=== PATIENT | male | born 2005 | race Caucasian/White ===

== ENCOUNTER 2023-01-02 02:16 | Emergency (ER) | payer MEDICAID, OTHER ==
[~2023-01-02] VITALS: Ht 172.7 cm; Wt 92.0 kg
[2023-01-02 02:28] VITALS: O2SAT 97
[2023-01-02 02:59] LABS: HEMATOCRIT. 48.4 % (42.0-52.0); HEMOGLOBIN. 16.4 g/dL (14.0-18.0); MEAN CORPUSCULAR HEMOGLOBIN 29.7 pg (28.0-32.0); MEAN CORPUSCULAR VOLUME 87.7 fL (80.0-94.0); MEAN PLATELET VOLUME 9.4 fl (7.4-10.4); PLATELET 237 x1000/uL (130-400); RED BLOOD CELL COUNT 5.52 mill/uL (4.7-6.1); RED CELL DISTRIBUTION WIDTH 13.6 % (11.6-14.6)
[2023-01-02 03:07] LABS: CHLORIDE 107 mEq/L (98-107)
[2023-01-02] MEDS ORDERED: ONDANSETRON HCL 4MG TABLET PO ONE (04:30)
[2023-01-02 05:02] LABS: PLATELET ESTIMATE NORMAL
[2023-01-02 09:45] VITALS: BP 112/78; PULSE 98; RESP 18; TEMP 98.5
== END 2023-01-02 09:50 | disposition home or self-care (01) ==
LOC: ER 02:38
DX: R10.9 Unspecified abdominal pain (principal); R11.2 Nausea with vomiting, unspecified; I10 Essential (primary) hypertension
CPT/HCPCS: 99284; 74176; 80053; 83690; 85025; 36415; Q0162